=== PATIENT | female | born 1970 | race Caucasian/White ===

== ENCOUNTER 2018-10-26 09:22 | Emergency (ER) | payer OTHER, MEDICAID ==
[2018-10-26] MEDS: ONDANSETRON (ODT) 4 MG TAB ODT ×2 (11:41→14:00)
[2018-10-26] MEDS: HYDROCODONE/APAP (10/325) TAB PO (11:41)
[2018-10-26] MEDS: KETOROLAC 30 MG INJ IM (15:01)
== END 2018-10-26 15:09 | disposition home or self-care (01) ==
LOC: FTE 09:22
DX: S40.012A Contusion of left shoulder, initial encounter (principal); S29.011A Strain of muscle and tendon of front wall of thorax, initial encounter; R51 Headache; S16.1XXA Strain of muscle, fascia and tendon at neck level, initial encounter; R07.9 Chest pain, unspecified; S83.8X2A Sprain of other specified parts of left knee, initial encounter; V49.49XA Driver injured in collision with other motor vehicles in traffic accident, initial encounter
CPT/HCPCS: 70450; 71045; 73510; 73562; 81025; 96372; 99285-25